=== PATIENT | female | born 1970 | race Caucasian/White ===

== ENCOUNTER → 2024-01-23 | Outpatient (CLI) | payer OTHER, SELFPAY ==
--- NOTE | 2024-01-23 | COLBX_PTH ---
PATIENT: NINA RIOS [facility] U[facility][id number] AGE/SX: 53/F ROOM: RE01/23/[address]: Dr. Edgardo Fernando MD : 1970 BED: DIS: 01/23/2024 SPEC #: [id number] RECD: 01/23/24 15:05 STATUS: SHAHAB REViktoriya #: [id number] JUAN: 01/23/24 00:[address]: Edgardo Fernando DEPT: SURGICAL PATHOLOGY RECD BY: Keenan Berg ENTERED: 01/23/24 15:05 SP TYPE: COLON BX OTHR DR: Dr. Fanta Chris DO Tissues: A - Transverse colon B - Ascending colon Procedures: Surgery Specimen Level IV HEADER OPERATION: Colonoscopy PRE-OP DIAGNOSIS: History of polyps TISSUE SUBMITTED: A- Transverse colon polyp, B- Ascending colon polyp MICROSCOPIC DIAGNOSIS A. Transverse colon polyp, biopsy: Tubular adenoma. B. Ascending colon polyp, biopsy: Fragments of tubular adenoma. / 01/26/2024 MICROSCOPIC DESCRIPTION Slides are reviewed. GROSS DESCRIPTION A. Received in fixative is one container labeled with the patient's name and designated Transverse colon polyp. The specimen consists of one irregular fragment of light mccormick soft tissue that measures 0.5 x 0.4 x 0.2 cm. The specimen is totally submitted in one cassette. B. Received in fixative is one container labeled with the patient's name and designated Ascending colon polyp. The specimen consists of multiple irregular fragments of light mccormick soft tissue that in aggregate measure 0.6 x 0.2 x 0.1 cm. The specimen is totally submitted in one cassette. / 01/23/2024 TC:1 CPT:58146f9
== END | disposition home or self-care (01) ==
LOC: LABSPEC 14:16
PROVIDERS: PCP Family Medicine; Referring Provider Surgery; Visit Provider Surgery
DX: D12.2 Benign neoplasm of ascending colon (principal); D12.3 Benign neoplasm of transverse colon
CPT/HCPCS: 88305